=== PATIENT | female | born 1950 | race Caucasian/White ===

== ENCOUNTER 2025-01-25 07:41 | Day surgery (SDC) | payer MEDICARE ==
[2025-01-25] VITALS (11 sets, daily range): BP systolic 135–165; BP diastolic 54–85; PULSE 56–65; RESP 14–18; TEMP 97.3–98.2
[~2025-01-25] VITALS: Ht 152.4 cm; Wt 56.7 kg
[~2025-01-25 07:41] MED LIST: ATOR40TA69 PO; BACL10TA PO; BOTULINUM TOXIN TYPE A 100 UNITS/VIAL INJ SCH; BUDE10.22 IH; DULO30CA52 PO; FAMO20TA8 PO; FLUT15.845 NS; LEVO50CA5 PO; MONT-39 PO; OMEP40CA21 PO; SOLI10TA PO; SUCR1TAB2 PO
[2025-01-25] MEDS: 0.9%NACL 1000ML 1,000 ML IV ONE (08:54)
== END 2025-01-25 11:59 | disposition home or self-care (01) ==
LOC: DAH 07:41 → ENDO 07:41
PROVIDERS: ATTEND Internal Medicine Gastroenterology
DX: R13.10 Dysphagia, unspecified (principal); K31.89 Other diseases of stomach and duodenum; E78.00 Pure hypercholesterolemia, unspecified; M19.90 Unspecified osteoarthritis, unspecified site; K44.9 Diaphragmatic hernia without obstruction or gangrene; K21.9 Gastro-esophageal reflux disease without esophagitis; R12 Heartburn; R19.7 Diarrhea, unspecified; R93.3 Abnormal findings on diagnostic imaging of other parts of digestive tract; K29.50 Unspecified chronic gastritis without bleeding; Z90.710 Acquired absence of both cervix and uterus; Z86.0100 Personal history of colon polyps, unspecified; Z79.82 Long term (current) use of aspirin; Z88.6 Allergy status to analgesic agent; Z79.899 Other long term (current) drug therapy; Z98.890 Other specified postprocedural states
CPT/HCPCS: 43236; 43239; J7030; J2704; J0585; A4620; A4215; J3490